=== PATIENT | female | born 1945 | race Caucasian/White ===

== ENCOUNTER 2019-04-08 11:00 | Emergency (ER) | payer OTHER ==
[~2019-04-08] VITALS: Ht 152.4 cm; Wt 74.8 kg
--- NOTE | 2019-04-08 11:10 | NUR ---
PATIENT AMBULATED TO BED 10 AT THIS TIME.
[2019-04-08 11:18] VITALS: BP 134/37
[2019-04-08] MEDS ORDERED: NACL 0.9% 1,000 ML IV ONE ×2 (11:40→12:35)
--- NOTE | 2019-04-08 11:40 | NUR ---
BIB DAUGHTER. REFERRED FROM URGENT CARE FOR R/O DKA. DAUGHTER REPORTS HIGH GLUCOMETIC READING AT URGENT CARE. DAUGHTER GAVE INSULIN 10 UNITS X 45 MINS RIDING COACH. AT ER BLOOD SUGAR 397 AT THIS TIME. DAUGHTER REPORTS INCREASED CONFUSION IN PT, ALTHOUGH PT HAS A HX OF DEMENTIA. VS STABLE. PT DENIES PAIN. AMBULATES INDEPENDENTLY PER DAUGHTER. PT ALERT AND AWAKE. HX: DEMENTIA, DM, HIGH CHOLESTEROL, HTN
[2019-04-08 12:04] LABS: BASOPHILS % (AUTO) 0.3 % (0.0-2.0); HEMATOCRIT 38.5 % (36-48); HEMOGLOBIN 12.5 g/dL (12.0-16.0); LYMPHOCYTES # (AUTO) 0.8 K/uL (2.5-16.5); LYMPHOCYTES % (AUTO) 8.1 % (20.5-51.1); MEAN CORPUSCULAR HEMOGLOBIN 28 pg (27-31); MEAN CORPUSCULAR HGB CONC 33 g/dL (33-37); MEAN CORPUSCULAR VOLUME 86.9 fL (80-94); MONOCYTES # (AUTO) 0.3 K/uL (0.8-1.0); MONOCYTES % (AUTO) 3.5 % (1.7-9.3); NEUTROPHILS # (AUTO) 8.8 K/uL (1.8-7.7); NEUTROPHILS % (AUTO) 88.1 % (42.2-75.2); PLATELET COUNT (AUTO) 243 K/uL (140-450); RED BLOOD CELL COUNT(AUTO) 4.43 MIL/uL (4.20-5.40); RED CELL DISTRIBUTION WIDTH 15.3 % (11.6-13.7)
--- NOTE | 2019-04-08 12:18 | NUR ---
FLU SWAB COLLECTED
--- NOTE | 2019-04-08 12:22 | NUR ---
PT ASSISTED ONTO BED HACKETT
[2019-04-08 12:24] LABS: ALBUMIN 3.3 g/dL (3.4-5.0); ANION GAP 17.3 (8-16); ASPARTATE AMINOTRANSFERASE 13 U/L (15-37); CARBON DIOXIDE 23.8 mmol/L (21-32); CHLORIDE 91 mmol/L (98-107); POTASSIUM 4.1 mmol/L (3.5-5.1); SODIUM SERUM 128 mmol/L (136-145); TOTAL BILIRUBIN 0.4 mg/dL (0.0-1.0); UREA NITROGEN, BLOOD 19 mg/dL (7-18)
--- NOTE | 2019-04-08 12:27 | NUR ---
XRAY AT BEDSIDE, VS STABLE, PT AFEBRILE
--- NOTE | 2019-04-08 12:28 | NUR ---
PT HAD BM WITH URINE SAMPLE, UNABLE TO USE URINE SAMPLE IT IS CONTAMINATED
--- NOTE | 2019-04-08 12:31 | NUR ---
DAUGHTER REFUSING STRAIGHT CATH AT THIS TIME
--- NOTE | 2019-04-08 12:39 | NUR ---
BS 378, VERBAL ORDER FOR ANOTHER BOLUS
--- NOTE | 2019-04-08 12:45 | NUR ---
440 BS Addendum: 04/08/19 at 1246 by [email or web address] CRITICAL [facility]UE
[2019-04-08 12:46] LABS: GLUCOSE 440 mg/dL (74-106)
--- NOTE | 2019-04-08 13:41 | NUR ---
PATIENT AMBULATED TO BATHROOM WITH DAUGHTER TO PROVIDE URINE SAMPLE. URINE HAT PLACED IN TOILET. WHEN COLLECTING SAMPLE, THERE WAS LOOSE BOWEL CONTAMINATING SAMPLE. URINE WAS DISCARDED. DAUGHTER IS REFUSING STRAIGHT CATH
[2019-04-08] MEDS ORDERED: INSULIN REGULAR, HUMAN 100 UNIT/ML VIAL SUBQ ONE (13:45)
[2019-04-08 14:56] LABS: BILIRUBIN,URINE NEGATIVE (NEGATIVE); BLOOD, URINE TRACE-I (NEGATIVE); COLOR,URINE STRAW (YELLOW); LEUKOCYTE ESTERASE ,URINE NEGATIVE (NEGATIVE); NITRITE, URINE NEGATIVE (NEGATIVE); PH,URINE 5.5 (5.0-9.0); UGLUCOSE 3+ (NEGATIVE)
[2019-04-08 15:07] LABS: APPEARANCE,URINE HAZY (CLEAR); RBC,URINE 0-5 /HPF (0-5)
[2019-04-08 15:08] LABS: WBC,URINE 0-5 /HPF (0-5); YEAST,URINE Few /HPF (None Seen)
--- NOTE | 2019-04-08 15:20 | NUR ---
PT LAYING IN BED, FAMILY AT BEDSIDE. SPO2 97% ON 2L NC, RR EVEN AND UNLABORED. DENIES ANY PAIN. ALL NEEDS MET.
[2019-04-08 15:46] VITALS: BP 135/72
--- NOTE | 2019-04-08 15:47 | NUR ---
Patient discharged with v/s stable. Written and verbal after care instructions given and explained. Patient alert, oriented and verbalized understanding of instructions. Ambulatory with by caregiver. All questions addressed prior to discharge. ID band removed. Patient advised to follow up with PMD. Rx of TAMIFLU, BACTRIM, ZOFRAN given. Patient educated on indication of medication including possible reaction and side effects. Opportunity to ask questions provided and answered.
== END 2019-04-08 15:47 | disposition home or self-care (01) ==
LOC: MED 11:00
DX: E11.9 Type 2 diabetes mellitus without complications (principal); N39.0 Urinary tract infection, site not specified; I10 Essential (primary) hypertension; E78.00 Pure hypercholesterolemia, unspecified; R73.9 Hyperglycemia, unspecified; Z98.890 Other specified postprocedural states; F03.90 Unspecified dementia, unspecified severity, without behavioral disturbance, psychotic disturbance, mood disturbance, and anxiety
CPT/HCPCS: 36415; 36600; 71045; 80053; 81001; 82803; 82948; 83605; 84484; 85025; 87040; 87086; 87804; 93005; 96360; 96361; 96372; 99284; J1815; J7030; 87186

== ENCOUNTER 2019-04-14 12:22 | Emergency (ER) | payer OTHER ==
[~2019-04-14] VITALS: Ht 148.6 cm; Wt 67.1 kg
[2019-04-14 12:33] VITALS: BP 182/71
--- NOTE | 2019-04-14 12:40 | NUR ---
amb to lobby steady gait Addendum: 04/14/19 at 1240 by LELAND with son
--- NOTE | 2019-04-14 13:04 | NUR ---
74/F BIB FAMILY C/O right temporal headache with nausea x 5 days.HX: DM,HTN, HLD, DEMENTIA. PATIENT STATES PAIN OF 9/10 AT THIS TIME. PATIENT POSITIONED FOR COMFORT; HOB ELEVATED; BEDRAILS UP X1; BED DOWN. ER MD MADE AWARE OF PT STATUS.
[2019-04-14] MEDS ORDERED: HYDROcodone/APAP 5/325 MG 1 TAB TAB PO ONE (13:25)
--- NOTE | 2019-04-14 13:28 | NUR ---
PT TAKEN TO CT VIA [facility], ACCOMPANIED BY ELIGIBILITY AND OCCUPANCY INTERVIEWER.
[2019-04-14 15:01] VITALS: BP 168/57
--- NOTE | 2019-04-14 15:01 | NUR ---
Patient discharged with BP 168/57;DENIES PAIN & DIZZINESS AT THIS TIME. MD MADE AWARE. Written and verbal after care instructions given and explained. Patient alert, oriented and verbalized understanding of instructions. Ambulatory with steady gait. All questions addressed prior to discharge. ID band removed. Patient advised to follow up with PMD. Rx of ULTRAM given. Patient educated on indication of medication including possible reaction and side effects. Opportunity to ask questions provided and answered.
--- NOTE | 2019-04-14 15:12 | NUR ---
TALKED TO KATEY ; PT'S DAUGHTER FOR DISCHARGE. RICHA; GRANDDAUGHTER WILL PICK HER UP AT 13.45 PM.
== END 2019-04-14 15:01 | disposition home or self-care (01) ==
LOC: MED 12:22
DX: R51 Headache (principal); I10 Essential (primary) hypertension; E11.9 Type 2 diabetes mellitus without complications; F03.90 Unspecified dementia, unspecified severity, without behavioral disturbance, psychotic disturbance, mood disturbance, and anxiety
CPT/HCPCS: 70450; 99284

== ENCOUNTER 2019-04-19 12:37 | Emergency (ER) | payer OTHER ==
[~2019-04-19] VITALS: Ht 152.4 cm; Wt 65.8 kg
[2019-04-19 12:46] VITALS: BP 184/124
[2019-04-19] MEDS ORDERED: fentaNYL 0.05 MG/ML VIAL IVP ONE ×2 (13:15→18:00)
[2019-04-19] MEDS ORDERED: ACYCLOVIR 700 MG in NACL 0.9% 100 ML IV ONE (13:15)
[2019-04-19] MEDS ORDERED: NACL 0.9% 500 ML IV SCH (13:15)
--- NOTE | 2019-04-19 13:20 | NUR ---
PATIENT MOVED TO BED 1 AT THIS TIME.
[2019-04-19] MEDS ORDERED: ACYCLOVIR 500 MG VIAL IV ONE (14:01)
[2019-04-19 14:06] LABS: BASOPHILS # (AUTO) 0.1 K/uL (0.00-0.22); EOSINOPHILS % (AUTO) 0.7 % (0.0-4.0); HEMATOCRIT 47.3 % (36-48); HEMOGLOBIN 15.2 g/dL (12.0-16.0); LYMPHOCYTES # (AUTO) 0.9 K/uL (2.5-16.5); LYMPHOCYTES % (AUTO) 13.4 % (20.5-51.1); MEAN CORPUSCULAR HEMOGLOBIN 28 pg (27-31); MEAN CORPUSCULAR HGB CONC 32 g/dL (33-37); MEAN CORPUSCULAR VOLUME 87.1 fL (80-94); MONOCYTES # (AUTO) 0.7 K/uL (0.8-1.0); MONOCYTES % (AUTO) 10.5 % (1.7-9.3); NEUTROPHILS % (AUTO) 74.4 % (42.2-75.2); PLATELET COUNT (AUTO) 285 K/uL (140-450); RED BLOOD CELL COUNT(AUTO) 5.43 MIL/uL (4.20-5.40); RED CELL DISTRIBUTION WIDTH 15.9 % (11.6-13.7); WHITE BLOOD COUNT (AUTO) 6.7 K/uL (4.8-10.8)
--- NOTE | 2019-04-19 14:14 | NUR ---
BIB DAUGHTER C/O RASHES TO RIGHT FACE & RIGHT HEAD X YESTERDAY, RIGHT EYE REDNESS , IRRITATION X 3 DAYS, HEADACHE X 6 DAYS. SEEN HERE 5 DAYS AGO FOR HEADACHE. BP 184.124 AT THIS TIME. DAUGHTER GAVE LOSARTAN 50 MG AT THIS TIME. MED HX: DEMENTIA, HTN,DM,HIGH CHOLESTEROL
--- NOTE | 2019-04-19 14:15 | NUR ---
Pt report given to ESTRELLA ROLDAN. Transfer of care at this time.
[2019-04-19 14:25] LABS: ALBUMIN 3.8 g/dL (3.4-5.0); ANION GAP 17.8 (8-16); ASPARTATE AMINOTRANSFERASE 24 U/L (15-37); CARBON DIOXIDE 28.8 mmol/L (21-32); CHLORIDE 96 mmol/L (98-107); CREATININE 0.9 mg/dL (0.6-1.3); GLUCOSE 179 mg/dL (74-106); POTASSIUM 4.6 mmol/L (3.5-5.1); SODIUM SERUM 138 mmol/L (136-145); TOTAL BILIRUBIN 0.5 mg/dL (0.0-1.0); UREA NITROGEN, BLOOD 11 mg/dL (7-18)
[2019-04-19 14:27] LABS: PROTHROMBIN TIME 10.1 secs (10.8-13.4)
--- NOTE | 2019-04-19 14:39 | NUR ---
URINE SAMPLE OBTAINED VIA STRAIGHT CATH; SAMPLE HANDED TO [employer] [facility].
[2019-04-19 15:00] LABS: APPEARANCE,URINE SL CLOUDY (CLEAR); BILIRUBIN,URINE NEGATIVE (NEGATIVE); BLOOD, URINE NEGATIVE (NEGATIVE); COLOR,URINE YELLOW (YELLOW); LEUKOCYTE ESTERASE ,URINE NEGATIVE (NEGATIVE); NITRITE, URINE POSITIVE (NEGATIVE); UGLUCOSE NEGATIVE (NEGATIVE)
[2019-04-19 15:19] LABS: RBC,URINE 0-5 /HPF (0-5)
--- NOTE | 2019-04-19 15:48 | NUR ---
NOTIFIED DAUGHTER OF PLAN TO TRANSFER PT TO ANOTHER FACILITY. DAUGHTER HAS SIGNED CONSENT FORM. PT SLEEPING IN BED NOW.
--- NOTE | 2019-04-19 17:06 | NUR ---
PER YOVANI FROM [facility], THEY ARE STILL LOOKING FOR BEDS.
--- NOTE | 2019-04-19 18:36 | NUR ---
REPORT TO ESTRELLA TERRAZAS AT [facility]
[2019-04-19 18:59] VITALS: BP 177/58
--- NOTE | 2019-04-19 18:59 | NUR ---
REPORT TO [facility] AT BEDSIDE. DAUGHTER KATEY AT BEDSIDE WITH PATIENT.
--- NOTE | 2019-04-19 19:00 | NUR ---
Patient to be transferred to [facility]. Is being transferred due to SHINGLES OPHTHALMICUS. Receiving facility has accepting physician and available space. ER physician has signed transfer form. Patient or responsible alliance party has agreed to transfer and signed form. Patient belongings inventoried and will be sent with patient. Copy of nursing notes, lab reports, EKG, Physicians Orders and X-rays to be sent with patient. Report called to MK DE LA ROSA at receiving facility. [facility] TRANSPORT AT BEDSIDE WITH DAUGHTER KATEY.
== END 2019-04-19 19:00 | disposition short-term general hospital (02) ==
LOC: MED 12:37
DX: B02.30 Zoster ocular disease, unspecified (principal); I10 Essential (primary) hypertension; F03.90 Unspecified dementia, unspecified severity, without behavioral disturbance, psychotic disturbance, mood disturbance, and anxiety; E11.9 Type 2 diabetes mellitus without complications
CPT/HCPCS: 36415; 71045; 80053; 81001; 83605; 84484; 85025; 85610; 85730; 87040; 87086; 87186; 93005; 96365; 96375; 99285; C1758; J0133; J3010; J7030; Q0092

== ENCOUNTER 2019-05-11 11:11 | Emergency (ER) | payer OTHER ==
[~2019-05-11] VITALS: Ht 152.4 cm; Wt 65.8 kg
[2019-05-11 11:32] VITALS: BP 148/77
--- NOTE | 2019-05-11 11:36 | NUR ---
TRIAGE COMPLETE. VSS. TO LOBBY AWAITNG BED IN ED.
--- NOTE | 2019-05-11 12:08 | NUR ---
Patient ambulated to bed 10. RN evaluating patient at bedside.
--- NOTE | 2019-05-11 12:55 | NUR ---
C/O HEADACHE OVER THE LAST WEEK THAT HAS INCREASED OVER THE LAST 2 DAYS. PT WAS DX WITH SHINGLES OF THE EYE APPROX 3 WEEKS AGO HERE AT [facility], AND WAS TRANSFERED TO [facility] FOR ADMISSION. PT ALSO HAD A FALL APPROX 2 WEEKS AGO AND HAD A CT/MRI DONE AT [facility] THAT WAS CLEAR PER PT DAUGHTER. PT NOW HAS A HEADACHE TO TOP OF SCALP THAT HAS "WAVES" OF INTENSITY. PER PT DAUGHTER, LAST NIGHT THE PAIN WAS SO BAD SHE URINATED ON HERSELF TWICE AND THAT IS NOT NORMAL FOR HER. NO UNILATERAL WEAKNESS, SLURRED SPEECH, FACIAL DROOP OR CONFUSION NOTED. PT A & O X4. PT AMBULATORY WITH UNSTEADY GAIT. BED IN LOW POSITION, SIDE RAIL UP X1. DAUGHTER AT BEDSIDE
[2019-05-11 13:16] VITALS: BP 135/87
--- NOTE | 2019-05-11 14:12 | NUR ---
Patient discharged with v/s stable. Written and verbal after care instructions given and explained. Patient alert, oriented and verbalized understanding of instructions. Ambulatory with steady gait. All questions addressed prior to discharge. ID band removed. Patient advised to follow up with PMD. Opportunity to ask questions provided and answered.
== END 2019-05-11 14:12 | disposition home or self-care (01) ==
LOC: MED 11:11
DX: B02.9 Zoster without complications (principal); E11.9 Type 2 diabetes mellitus without complications; F03.90 Unspecified dementia, unspecified severity, without behavioral disturbance, psychotic disturbance, mood disturbance, and anxiety; I10 Essential (primary) hypertension
CPT/HCPCS: 81002; 99283